=== PATIENT | male | born 1960 | race Caucasian/White ===

== ENCOUNTER → 2016-09-07 | Outpatient (CLI) | payer OTHER ==
[~2016-09-07] MED LIST: ASCO250T4 PO; ASCO500T3 PO; ASPCH81X PO; CHOL1000 PO; FAMO20TA11 PO; FERR1TAB PO; FERR325T PO; FERROUS SULFATE PO; PRLSR20 PO
[2016-09-07 14:30] LABS: BASO % 0.6 %; BASO ABS # 0.03 K/uL (0-0.2); COMPLETE YES; EOS % 1.3 %; HEMATOCRIT 45.3 % (42-52); IG% 0.4 %; LYMPH % 19.5 %; LYMPH ABS # 1.04 K/uL (1.2-3.4); MEAN CELL VOLUME 86.6 fL (80-100); MEAN CORPUSCULAR HEMOGLOBIN 30.2 pg (25-34); MEAN CORPUSCULAR HGB CONC 34.9 g/dl (32-36); MEAN PLATELET VOLUME 10.4 fL (7.4-10.4); MONO % 9.2 %; PLATELET COUNT 185 K/uL (130-400); RED BLOOD COUNT 5.23 M/uL (4.7-6.1); WHITE BLOOD COUNT 5.33 K/uL (4.8-10.8)
[2016-09-07 14:31] LABS: BLOOD UREA NITROGEN 17 mg/dl (7-18); BUN/CREATININE RATIO 17.1 (10-20); CALCIUM 9.1 mg/dl (8.5-10.1); CARBON DIOXIDE 31 mmol/L (21-32); CHLORIDE 102 mmol/L (98-107); CREATININE 0.97 mg/dl (0.60-1.40); GLUCOSE 112 mg/dl (70-99); POTASSIUM 4.4 mmol/L (3.5-5.1); SODIUM 139 mmol/L (136-145)
[2016-09-07 14:41] LABS: CHOLESTEROL 171 mg/dl (0-200); CHOLESTEROL/HDL RATIO 3.4; HDL CHOLESTEROL 51 mg/dl; LDL CHOLESTEROL CALCULATED 104 mg/dl; TRIGLYCERIDES 79 mg/dl (0-150); VERY LOW DENSITY LIPOPROT CALC 16 mg/dl
== END | disposition home or self-care (01) ==
LOC: C.LABBC 10:11
PROVIDERS: ATTEND Nurse Practitioner Family
DX: R53.81 Other malaise (principal); Z13.220 Encounter for screening for lipoid disorders

== ENCOUNTER → 2016-10-04 | Outpatient (CLI) | payer OTHER ==
[2016-10-04 11:22] LABS: ALT/SGPT 39 U/L (12-78); BLOOD UREA NITROGEN 16 mg/dl (7-18); BUN/CREATININE RATIO 14.7 (10-20); CALCIUM 9.2 mg/dl (8.5-10.1); CARBON DIOXIDE 27 mmol/L (21-32); CHLORIDE 104 mmol/L (98-107); GLUCOSE 110 mg/dl (70-99); POTASSIUM 4.4 mmol/L (3.5-5.1); SODIUM 141 mmol/L (136-145)
[2016-10-04 11:26] LABS: ALB/GLOB RATIO 1.4 (0.9-2); ALKALINE PHOSPHATASE 51 U/L (45-117); AST/SGOT 15 U/L (15-37); PROSTATE SPECIFIC ANTIGEN 0.464 ng/ml (0.000-4.000)
[2016-10-04 11:27] LABS: ESTIMATED AVERAGE GLUCOSE 111 mg/dl; HA1C FLAG Normal (Normal)
== END | disposition home or self-care (01) ==
LOC: C.LABBC 09:05
PROVIDERS: ATTEND Nurse Practitioner Family
DX: E55.9 Vitamin D deficiency, unspecified (principal); Z13.220 Encounter for screening for lipoid disorders; Z12.5 Encounter for screening for malignant neoplasm of prostate

== ENCOUNTER 2016-11-07 12:55 | Emergency (ER) | payer OTHER ==
[~2016-11-07] VITALS: Ht 177.8 cm; Wt 108.4 kg
[2016-11-07 13:04] VITALS: TEMP 36.5; Ht 177.8 cm; Wt 108.4 kg
[2016-11-07 13:59] VITALS: O2SAT 96
[2016-11-07 14:34] LABS: BASO % 0.2 %; BASO ABS # 0.01 K/uL (0-0.2); COMPLETE YES; EOS % 1.1 %; HEMATOCRIT 42.9 % (42-52); IG% 0.5 %; LYMPH % 20.9 %; LYMPH ABS # 1.39 K/uL (1.2-3.4); MEAN CELL VOLUME 86.7 fL (80-100); MEAN CORPUSCULAR HEMOGLOBIN 30.9 pg (25-34); MEAN CORPUSCULAR HGB CONC 35.7 g/dl (32-36); MEAN PLATELET VOLUME 9.8 fL (7.4-10.4); MONO % 6.6 %; NEUT % 70.7 %; PLATELET COUNT 168 K/uL (130-400); RED BLOOD COUNT 4.95 M/uL (4.7-6.1); WHITE BLOOD COUNT 6.66 K/uL (4.8-10.8)
[2016-11-07 14:41] LABS: ALT/SGPT 50 U/L (12-78); BLOOD UREA NITROGEN 19 mg/dl (7-18); BUN/CREATININE RATIO 21.6 (10-20); CALCIUM 8.9 mg/dl (8.5-10.1); CARBON DIOXIDE 27 mmol/L (21-32); CHLORIDE 103 mmol/L (98-107); CREATININE 0.86 mg/dl (0.60-1.40); GLUCOSE 93 mg/dl (70-99); POTASSIUM 4.2 mmol/L (3.5-5.1); SODIUM 140 mmol/L (136-145)
[2016-11-07 14:42] LABS: PARTIAL THROMBOPLASTIN RATIO 1.1; PROTHROMBIN TIME (PATIENT) 10.5 SECONDS (9.0-12.0)
[2016-11-07] MEDS ORDERED: FERR325T PO (14:47)
[2016-11-07] MEDS ORDERED: PRLSR20 PO (14:47)
[2016-11-07] MEDS ORDERED: ASPCH81X PO (14:47)
[2016-11-07] MEDS ORDERED: ASCO500T3 PO (14:47)
[2016-11-07] MEDS ORDERED: CHOL1000 PO (14:47)
[2016-11-07] MEDS ORDERED: ASCO250T4 PO (14:50)
[2016-11-07] MEDS ORDERED: FERR1TAB PO (14:50)
[2016-11-07 14:52] LABS: ALKALINE PHOSPHATASE 48 U/L (45-117); AST/SGOT 16 U/L (15-37); CKMB/CK RATIO 1.8 (0-3.0)
--- NOTE | 2016-11-07 14:52 | DIAGNOSTIC IMAGING REPORT ---
CHEST ONE VIEW PORTABLE CLINICAL HISTORY: Evaluate Fever/Sepsis dyspnea COMPARISON STUDY: No previous studies for comparison. FINDINGS: Moderate cardiac megaly. Lungs are clear. Diaphragms smooth. IMPRESSION: No acute process. Moderate cardiomegaly. Electronically signed by: Royce Benton M.D. 11/07/2016 2:51 PM Dictated Date/Time: 11/07/2016 2:51 PM
[2016-11-07] MEDS ORDERED: FAMO20TA11 PO (14:54)
--- NOTE | 2016-11-07 15:53 | EMERGENCY ROOM VISIT NOTE ---
History Report prepared by Lara: Karena Mckeon Under the Supervision of: Dr. Teodoro Rojas D.O. First contact with patient: 14:20 Chief Complaint: CHEST PAIN Stated Complaint: CHEST PAIN/PRESSURE, RESPIRATORY ISSUES Nursing Triage Summary: chest pain started at 0100 this am has been 4-5 times in last month late at night thought he has acid reflux. has cough with green mucus, no sob pt took 4 asa at 0930 and 1130 History of Present Illness The patient is a 56 year old male who presents to the Emergency Room with complaints of constant chest pain beginning 13 hours prior to arrival. He describes the pain as a tightness. The patient states that he woke up at 1am this morning and was not feeling well. He does note he has had cold like symptoms for several days including a cough with sputum. The patient notes that for the past month he has experienced these same symptoms 4-5 times. He notes each time he begins to get anxious that he is having cardiac issues. The patient notes that he came to the ED today due to the symptoms not resolving. He denies symptoms during the day, worsening symptoms with exertion, or a family history of cardiac issues. Patient did take baby Aspirin today and is currently taking acid reflux medications. 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 Review of Systems See HPI for pertinent positives & negatives. A total of 10 systems reviewed and were otherwise negative. Past Medical & Surgical Medical Problems: (1) Acid reflux Family History Patient reports no known family medical history. Social History Smoking Status: Never Smoker Marital Status: Housing Status: lives with family Occupation Status: employed Current/Historical Medications Scheduled Ascorbic Acid (Vitamin C), 1 TAB PO DAILY Aspirin (Aspirin Chewable), 81 MG PO DAILY Cholecalciferol (Vitamin D3), 2 TAB PO DAILY Ferrous Sulfate Dried (Eql Iron Supplement Thera), 1 TAB PO DAILY Omeprazole (Prilosec), 20 MG PO DAILY Scheduled PRN Famotidine (Pepcid), 1 TAB PO UD PRN for GI Upset Allergies Coded Allergies: No Known Allergies (Unverified , 11/07/16) Physical Exam Vital Signs Date Time Temp Pulse Resp B/P Pulse Ox O2 Delivery O2 Flow Rate FiO2 11/07/16 15:00 60 16 119/82 98 11/07/16 14:00 60 16 112/76 96 11/07/16 13:59 96 Room Air 11/07/16 13:04 36.5 59 18 131/85 96 Room Air Physical Exam CONSTITUTIONAL/VITAL SIGNS: Reviewed / noted above. GENERAL: Non-toxic in appearance. INTEGUMENTARY: Warm, dry, and [place]. HEAD: Normocephalic. EYES: without scleral icterus or trauma. ENT/OROPHARYNX: clear and moist. LYMPHADENOPATHY/NECK: Is supple without lymphadenopathy or meningismus. RESPIRATORY: Lungs clear and equal. CARDIOVASCULAR: Regular rate and rhythm. GI/ABDOMEN: Soft and nontender. No organomegaly or pulsatile mass. No rebound or guarding. Normal bowel sounds. EXTREMITIES: Warm and well perfused. BACK: No CVA tenderness. NEUROLOGICAL: Intact without focal deficits. PSYCHIATRIC: normal affect. MUSCULOSKELETAL: Normally developed with good muscle tone. Medical Decision & Procedures ER Provider Diagnostic Interpretation: X ray results and stated below per my interpretation and radiology interpretation. CHEST ONE VIEW PORTABLE CLINICAL HISTORY: Evaluate Fever/Sepsis dyspnea COMPARISON STUDY: No previous studies for comparison. FINDINGS: Moderate cardiac megaly. Lungs are clear. Diaphragms smooth. IMPRESSION: No acute process. Moderate cardiomegaly. Electronically signed by: Royce Benton M.D. 11/07/2016 2:51 PM Dictated Date/Time: 11/07/2016 2:51 PM Laboratory Results 11/07/16 14:18 Red Blood Count 4.95, Mean Corpuscular Volume 86.7, Mean Corpuscular Hemoglobin 30.9, Mean Corpuscular Hemoglobin Concent 35.7, Mean Platelet Volume 9.8, Neutrophils (%) (Auto) 70.7, Lymphocytes (%) (Auto) 20.9, Monocytes (%) (Auto) 6.6, Eosinophils (%) (Auto) 1.1, Basophils (%) (Auto) 0.2, Neutrophils # (Auto) 4.72, Lymphocytes # (Auto) 1.39, Monocytes # (Auto) 0.44, Eosinophils # (Auto) 0.07, Basophils # (Auto) 0.01 11/07/16 14:18 Test 11/07/16 14:18 White Blood Count 6.66 K/uL (4.8-10.8) Red Blood Count 4.95 M/uL (4.7-6.1) Hemoglobin 15.3 g/dL (14.0-18.0) Hematocrit 42.9 % (42-52) Mean Corpuscular Volume 86.7 fL (80-100) Mean Corpuscular Hemoglobin 30.9 pg (25-34) Mean Corpuscular Hemoglobin Concent 35.7 g/dl (32-36) Platelet Count 168 K/uL (130-400) Mean Platelet Volume 9.8 fL (7.4-10.4) Neutrophils (%) (Auto) 70.7 % Lymphocytes (%) (Auto) 20.9 % Monocytes (%) (Auto) 6.6 % Eosinophils (%) (Auto) 1.1 % Basophils (%) (Auto) 0.2 % Neutrophils # (Auto) 4.72 K/uL (1.4-6.5) Lymphocytes # (Auto) 1.39 K/uL (1.2-3.4) Monocytes # (Auto) 0.44 K/uL (0.11-0.59) Eosinophils # (Auto) 0.07 K/uL (0-0.5) Basophils # (Auto) 0.01 K/uL (0-0.2) RDW Standard Deviation 39.9 fL (36.4-46.3) RDW Coefficient of Variation 12.6 % (11.5-14.5) Immature Granulocyte % (Auto) 0.5 % Immature Granulocyte # (Auto) 0.03 K/uL (0.00-0.02) Prothrombin Time 10.5 SECONDS (9.0-12.0) Prothromb Time International Ratio 1.0 (0.9-1.1) Activated Partial Thromboplast Time 28.1 SECONDS (21.0-31.0) Partial Thromboplastin Ratio 1.1 Anion Gap 10.0 mmol/L (3-11) Est Creatinine Clear Calc Drug Dose 119.6 ml/min Estimated GFR () 113.1 Estimated GFR (Non- 97.6 BUN/Creatinine Ratio 21.6 (10-20) Calcium Level 8.9 mg/dl (8.5-10.1) Total Bilirubin 0.6 mg/dl (0.2-1) Direct Bilirubin 0.2 mg/dl (0-0.2) Aspartate Amino Transf (AST/SGOT) 16 U/L (15-37) Alanine Aminotransferase (ALT/SGPT) 50 U/L (12-78) Alkaline Phosphatase 48 U/L (45-117) Total Creatine Kinase 33 U/L (39-308) Creatine Kinase MB 0.6 ng/ml (0.5-3.6) Creatine Kinase MB Ratio 1.8 (0-3.0) Troponin I < 0.015 ng/ml (0-0.045) Total Protein 7.0 gm/dl (6.4-8.2) Albumin 4.0 gm/dl (3.4-5.0) Lipase 105 U/L (73-393) Thyroid Stimulating Hormone (TSH) 2.430 uIu/ml (0.300-4.500) Laboratory results as stated above per my review. ECG Indication: chest pain Rate (beats per minute): 56 Rhythm: sinus bradycardia Findings: T-wave inversion (Anterior), no acute ischemic change, no ectopy Comparison ECG Date: Compared to November 26, 2011 the T wave abnormalities in Lead 1 are similar, Lead 2 and 3 appear new ED Course 1421: Previous medical records were reviewed. The patient was evaluated in room B10. A complete history and physical examination was performed. 1541: I discussed the test results with the patient. 1550: The patient would like to go home. 1554: On reevaluation, the patient is hemodynamically stable. I discussed the results and findings with the patient. He verbalized agreement of the treatment plan. He was discharged home. Medical Decision the differential was considered includes acute myocardial infarction, acute coronary syndrome, myocarditis, pericarditis, pericardial effusions /tamponad, esophageal perforation, thoracic aortic dissection, pulmonary embolism, pneumonia, pneumothorax, pancreatitis, shingles, acute cholecystitis, perforated abdominal viscus. This is a 56-year-old male who presents to the ED with a chief complaint of chest discomfort. The patient states that he has been having intermittent chest discomfort at night. He states that he has had a 3-4 times this past month. He states that last night around 1 AM he developed a tightness in his chest. He denied any associated symptoms such as shortness of breath, palpitations, lightheadedness or dizziness. 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 He does not have symptoms during the day. He denies any fevers or chills. No trauma. No swelling in the legs or DVT risk factors. He denies cardiac risk factors such as family history or smoking. He takes medication for reflux. The patient has normal vital signs. His exam was normal. Blood work including a CBC and complete metabolic panel as well as troponin and TSH were negative. A chest x-ray did not show acute disease. EKG shows a sinus bradycardia rate of 56 without acute injury or ectopy. He does have some T-wave inversions anteriorly. The one was similar to 2012 but the other 2 were new. The patient was told results the test. I did offer observation overnight and stress testing tomorrow because the EKG abnormality. The patient stated he would like to go home and follow-up with his PCP and get an outpatient stress test. He is currently asymptomatic. He will return should he have any worsening or new concerns. He is felt to be stable for discharge and outpatient follow-up. Impression Primary Impression: Substernal precordial chest pain Scribe Attestation The scribe's documentation has been prepared under my direction and personally reviewed by me in its entirety. I confirm that the note above accurately reflects all work, treatment, procedures, and medical decision making performed by me. Departure Information Dispostion Home / Self-Care Referrals Aidan Crews III, CRNP (PCP) Forms HOME CARE DOCUMENTATION FORM, IMPORTANT VISIT INFORMATION Patient Instructions My [facility] Additional Instructions Follow-up with your doctor for outpatient stress testing. Your EKG was not completely normal today. Return to the emergency department should he develop any new or worsening symptoms.
[2016-11-07 16:00] VITALS: BP 111/69; PULSE 64; O2SAT 99
[2017-05-13] MEDS ORDERED: FERROUS SULFATE PO (11:05)
== END 2016-11-07 16:18 | disposition home or self-care (01) ==
LOC: C.EDB 12:57
DX: R07.2 Precordial pain (principal); K21.9 Gastro-esophageal reflux disease without esophagitis; Z79.899 Other long term (current) drug therapy; Z79.82 Long term (current) use of aspirin

== ENCOUNTER → 2016-12-01 | Outpatient (CLI) | payer OTHER ==
[~2016-12-01] MED LIST changes: -ASCO500T3 PO; -FERR325T PO
== END | disposition home or self-care (01) ==
LOC: C.LABBC 10:26
PROVIDERS: ATTEND Nurse Practitioner Family
DX: E55.9 Vitamin D deficiency, unspecified (principal)

== ENCOUNTER → 2017-04-21 | Outpatient (CLI) | payer OTHER ==
[2017-04-21 11:29] LABS: BLOOD UREA NITROGEN 17 mg/dl (7-18); BUN/CREATININE RATIO 17.2 (10-20); CALCIUM 9.1 mg/dl (8.5-10.1); CARBON DIOXIDE 29 mmol/L (21-32); CHLORIDE 107 mmol/L (98-107); GLUCOSE 109 mg/dl (70-99); POTASSIUM 4.4 mmol/L (3.5-5.1); SODIUM 141 mmol/L (136-145)
[2017-04-21 12:40] LABS: ESTIMATED AVERAGE GLUCOSE 111 mg/dl; HA1C FLAG Normal (Normal)
== END | disposition home or self-care (01) ==
LOC: C.LABBC 07:49
PROVIDERS: ATTEND Nurse Practitioner Family
DX: R73.9 Hyperglycemia, unspecified (principal)

== ENCOUNTER → 2017-05-31 | Day surgery (SDC) | payer OTHER ==
[2017-05-13 11:06] VITALS: BMI 33.0
[~2017-05-31] VITALS: Ht 177.8 cm; Wt 104.5 kg
[~2017-05-31] MED LIST changes: -ASPCH81X PO; +FENTANYL CITRATE INJ 50 MCG/1 ML 2 ML VIAL ONE; -FERR1TAB PO; +LIDOCAINE HCL 2% 2 ML VIAL (20MG/ML) ONE; +PROPOFOL IV EMULSION 10 MG/ML 20 ML VIAL IV ONE; +SODIUM CHLORIDE 0.9% 500ML 500 ML IV ONE
[2017-05-31 07:56] VITALS: Ht 177.8 cm; Wt 104.5 kg
--- NOTE | 2017-05-31 08:35 | Endo History and Physical ---
History & Physical Date of Service: May 31, 2017. Chief Complaint: reflux Referring Physician: DR. JANET PRESCOTT History of Present Illness 57 yo CM who presents for EGD secondary to GERD. Past Surgical History Hx Cardiac Surgery: No Hx Internal Defibrillator: No Hx Pacemaker: No Hx Abdominal Surgery: No Hx of Implantable Prosthesis: No Hx Post-Op Nausea and Vomiting: No Hx Cancer Surgery: No Hx Thoracic Surgery: No Hx Orthopedic: Yes (R KNEE MENISCUS SURG) Hx Urinary Tract Surgery: No Family History None Social History Smoking Status: Never Smoker Hx Substance Use: No Hx Alcohol Use: Yes (DAILY BEER 3 A DAY) Allergies Coded Allergies: No Known Allergies (Unverified , 05/31/17) Current Medications Reported Home Medications Medications Dose Route/Sig Max Daily Dose Days Date Category Pepcid (Famotidine) 20 Mg Tab 20 Mg PO PRN 05/31/17 Reported [Ferrous Sulfate] 1 Tab PO QAM 05/13/17 Reported Vitamin C (Ascorbic Acid) 250 Mg Tab 1 Tab PO QAM 11/07/16 Reported Vitamin D3 (Cholecalciferol) 1,000 Unit Tab 2 Tab PO DAILY 30 11/07/16 Reported Prilosec (Omeprazole) 20 Mg Capcr 20 Mg PO QAM 11/07/16 Reported Vital Signs Weight (Kilograms): 104.55 Height (Feet): 5 Height (Inches): 10 Date Time Temp Pulse Resp B/P (MAP) Pulse Ox O2 Delivery O2 Flow Rate FiO2 05/31/17 08:04 36.6 59 18 118/80 (93) 93 Room Air Physical Exam General Appearance: WD/WN, no apparent distress Respiratory/Chest: Auscultation: breath sounds normal Cardiovascular: Heart Auscultation: RRR Abdomen: Bowel Sounds: normal Inspection & Palpation: soft, non-distended, no tenderness, guarding & rebound Assessment and Plan Assessment: 57 yo CM who presents for EGD secondary to GERD. Plan: Proceed with EGD.
--- NOTE | 2017-05-31 08:51 | GI REPORT ---
Procedure Date: 05/31/2017 8:41 AM Procedure: Upper GI endoscopy Indications: Gastro-esophageal reflux disease Medicines: Monitored Anesthesia Care Complications: No immediate complications. Estimated Blood Loss: Estimated blood loss: none. Procedure: Pre-Anesthesia Assessment: - Prior to the procedure, a History and Physical was performed, and patient medications and allergies were reviewed. The patient's tolerance of previous anesthesia was also reviewed. The risks and benefits of the procedure and the sedation options and risks were discussed with the patient. All questions were answered, and informed consent was obtained. Prior Anticoagulants: The patient has taken no previous anticoagulant or antiplatelet agents. ASA Grade Assessment: II - A patient with mild systemic disease. After reviewing the risks and benefits, the patient was deemed in satisfactory condition to undergo the procedure. After obtaining informed consent, the endoscope was passed under direct vision. Throughout the procedure, the patient's blood pressure, pulse, and oxygen saturations were monitored continuously. The scope was introduced through the mouth, and advanced to the second part of duodenum. The upper GI endoscopy was accomplished without difficulty. The patient tolerated the procedure well. Findings: The esophagus was normal. Localized mild inflammation characterized by erythema was found in the gastric antrum. Biopsies were taken with a cold forceps for histology. The examined duodenum was normal. Impression: - Normal esophagus. - Gastritis. Biopsied. - Normal examined duodenum. Recommendation: - Resume previous diet. - Continue present medications. - Await pathology results. - Return to primary care physician as previously scheduled. Martell Oconnor DO 05/31/2017 8:51:51 AM This report has been signed electronically. Note Initiated On: 05/31/2017 8:41 AM I attest to the content of the Intraoperative Record and orders documented therein, exceptions below
--- NOTE | 2017-05-31 09:01 | Discharge Instructions ---
Endoscopy Patient Instructions Date / Procedure(s) Performed May 31, 2017. EGD Allergy Information Coded Allergies: No Known Allergies (Unverified , 05/31/17) Discharge Date / Findings May 31, 2017. Gastritis s/p biopsies Medication Instructions OK to resume all medications today as prescribed Reported Home Medications Medications Dose Route/Sig Max Daily Dose Days Date Category Pepcid (Famotidine) 20 Mg Tab 20 Mg PO PRN 05/31/17 Reported [Ferrous Sulfate] 1 Tab PO QAM 05/13/17 Reported Vitamin C (Ascorbic Acid) 250 Mg Tab 1 Tab PO QAM 11/07/16 Reported Vitamin D3 (Cholecalciferol) 1,000 Unit Tab 2 Tab PO DAILY 30 11/07/16 Reported Prilosec (Omeprazole) 20 Mg Capcr 20 Mg PO QAM 11/07/16 Reported Provider Instructions Activity Restrictions - No exercising or heavy lifting for 24 hours. - Do not drink alcohol the day of the procedure. - Do not drive a car or operate machinery until the day after the procedure. - Do not make any important decisions or sign important papers in 24 hours after the procedure. Following Day: - Return to full activity which may include returning to work/school. Diet Start your diet with liquids and light foods (jello, soup, juice, toast). Then eat your usual diet if not nauseated. Treatment For Common After Affects For mild abdominal pain, bloating, or excessive gas: - Rest - Eat lightly - Lie on right side Follow-Up Information Follow-up with DR. JANET PRESCOTT as scheduled Anesthesia Information What You Should Know You have had a procedure that required some medicine to reduce anxiety and discomfort. This treatment is called moderate sedation. After receiving the treatment, you may be sleepy, but you will be able to breathe on your own. The effects of the treatment may last for several hours. Follow these instructions along with Activity/Diet recommendations noted above: * Do NOT do anything where dizziness or clumsiness would be dangerous. * Rest quietly at home today, then you can be up and about tomorrow. * Have a responsible person stay with you the rest of today. * You may have had an I.V. today. If so, you may take the dressing off later today. Recommendations Call your doctor if: * Trouble breathing * Continuous vomiting for more than 24 hours * Temperature above 101 degrees * Severe abdominal pain or bloating * Pain not relieved by pain medicine ordered * There is increased drainage or redness from any incision * A large amount of rectal bleeding greater than 2-3 tablespoons. (If you had a polyp/s removed or have hemorrhoids, a small amount of blood - from the rectum is to be expected.) * You have any unanswered questions or concerns. IN THE EVENT OF A SERIOUS EMERGENCY, GO TO THE NEAREST EMERGENCY ROOM Your discharge instructions were prepared by provider Martell Oconnor. Patient Instructions Signature Page Manav Brown Patient (or Guardian) Signature/Date: I have read and understand the instructions given to me by my caregivers. Caregiver/RN/Doctor Signature/Date: The above-named patient and/or guardian has received patient instructions on this date. + Original Patient Signature Page (only) stays with chart. Please make copy for patient.
[2017-05-31 09:22] VITALS: BP 107/69; PULSE 53; O2SAT 96
--- NOTE | 2017-05-31 10:21 | Anesthesiology Progress Note ---
Anesthesia Post Op Note Date & Time May 31, 2017 at 10:21 Vital Signs Pain Intensity: 0 Vital Signs Past 12 Hours Date Time Temp Pulse Resp B/P (MAP) Pulse Ox O2 Delivery O2 Flow Rate FiO2 05/31/17 09:22 53 18 107/69 (82) 96 Room Air 05/31/17 09:07 54 18 119/75 (90) 96 Room Air 05/31/17 08:52 73 18 107/69 (82) 93 Room Air 05/31/17 08:04 36.6 59 18 118/80 (93) 93 Room Air Notes Mental Status: alert / awake / arousable, participated in evaluation Pt Amnestic to Procedure: Yes Nausea / Vomiting: adequately controlled Pain: adequately controlled Airway Patency, RR, SpO2: stable & adequate BP & HR: stable & adequate Hydration State: stable & adequate Anesthetic Complications: no major complications apparent
== END | disposition home or self-care (01) ==
LOC: C.GI 07:32
PROVIDERS: ATTEND Internal Medicine
DX: K29.50 Unspecified chronic gastritis without bleeding (principal); K21.9 Gastro-esophageal reflux disease without esophagitis; Z79.899 Other long term (current) drug therapy

== ENCOUNTER → 2017-06-08 | Outpatient (CLI) | payer OTHER ==
[~2017-06-08] MED LIST changes: -FENTANYL CITRATE INJ 50 MCG/1 ML 2 ML VIAL ONE; -LIDOCAINE HCL 2% 2 ML VIAL (20MG/ML) ONE; -PROPOFOL IV EMULSION 10 MG/ML 20 ML VIAL IV ONE; -SODIUM CHLORIDE 0.9% 500ML 500 ML IV ONE
--- NOTE | 2017-06-08 10:05 | DIAGNOSTIC IMAGING REPORT ---
R WRIST MIN 3 VIEWS ROUTINE CLINICAL HISTORY: Chronic right wrist pain. COMPARISON: None FINDINGS: There is complete loss of the radiocarpal joint space with osteophytosis. There is widening of the scapholunate interval. No fracture or suspicious lesion is present. No erosions are identified IMPRESSION: Marked joint space narrowing of the radiocarpal articulation suggestive of osteoarthritis with widening of the scapholunate interval. The findings raise the possibility of developing scapholunate advanced collapse. Electronically signed by: Kem Andersen M.D. 06/08/2017 10:04 AM Dictated Date/Time: 06/08/2017 10:01 AM
== END | disposition home or self-care (01) ==
LOC: C.RADBC 09:39
PROVIDERS: ATTEND Nurse Practitioner Family
DX: M25.531 Pain in right wrist (principal); E55.9 Vitamin D deficiency, unspecified

== ENCOUNTER 2025-04-05 08:16 | Observation (INO) ==
--- NOTE | 2025-02-28 11:16 | PAT Medication Instructions ---
Medication Instructions Date of Service February 28, 2025 Home Medications Medication Instructions Recorded meloxicam 15 mg tablet 15 mg PO QAM #90 tabs 05/07/24 omeprazole 40 mg capsule,delayed 40 mg PO DAILY PRN acid reflux #90 12/06/24 release caps ascorbic acid (vitamin C) 500 mg chewable tablet 500 mg PO DAILY cholecalciferol (vitamin D3) 125 mcg (5,000 unit) capsule 5,000 units PO DAILY multivitamin with iron (Daily Vitamin with Iron tablet) 1 tab PO DAILY meloxicam 15 mg tablet 15 mg PO QAM omeprazole 40 mg capsule,delayed release 40 mg PO DAILY PRN acid reflux ASK your surgeon for instructions meloxicam 15 mg tablet 15 mg PO QAM DO NOT take the morning of surgery ascorbic acid (vitamin C) 500 mg chewable tablet 500 mg PO DAILY cholecalciferol (vitamin D3) 125 mcg (5,000 unit) capsule 5,000 units PO DAILY multivitamin with iron (Daily Vitamin with Iron tablet) 1 tab PO DAILY Take morning of surgery With a small sip of water, OTHERWISE NOTHING TO EAT OR DRINK AFTER MIDNIGHT: omeprazole 40 mg capsule,delayed release 40 mg PO DAILY PRN acid reflux (if needed) Other Notes If you have any questions please call us at [phone] or [phone] or [phone] or [phone]
--- NOTE | 2025-03-07 08:23 | Anesthesiology Consultation ---
Date of Service March 07, 2025 Assessment & Plan (1) Encounter for pre-operative examination: - Check BSG DOS - Infectious disease screening: Per assessment on 03/07/25- No known recent infectious disease contacts or current infectious disease symptoms. - Outpatient joint assessment: Pt currently scheduled for inpatient pathway. If surgeon requests review for outpatient joint pathway, patient is not recommended candidate for outpatient joint program from anesthesia standpoint based on available information. Chart Review Chart Review: Acceptable Risk for Surgery and Patient seen in Pre Admission Testing Teaching & Discussion Pre-Anesthesia Teaching/Discussion Notes: Instructed NPO after midnight before surgery,except medications with 15 cc of water. Medication instructions provided according to the PAT guidelines. History Surgery Operation Date: 04/05/25 08:00 Proposed Procedures p Right Total Knee Arthroplasty - Yuriy Gonzalez DO Height/Weight Height: 5 ft 10 in Weight: 119.7 kg Allergies Allergy/AdvReac Type Severity Reaction Status Date / Time adhesive tape Allergy Intermediate Rash Verified 02/27/25 07:32 terbinafine AdvReac H/A, Verified 02/27/25 07:32 myalgias Medications Home Medications Medication Instructions Recorded Confirmed Last Taken ascorbic acid (vitamin C) 500 mg 500 mg PO DAILY 04/23/19 02/27/25 04/02/24 chewable tablet cholecalciferol (vitamin D3) 125 5,000 units PO DAILY 08/23/19 02/27/25 04/02/24 mcg (5,000 unit) capsule multivitamin with iron (Daily 1 tab PO DAILY 11/06/19 02/27/25 04/02/24 Vitamin with Iron tablet) meloxicam 15 mg tablet 15 mg PO QAM #90 tabs 05/07/24 02/27/25 Unknown omeprazole 40 mg capsule,delayed 40 mg PO DAILY PRN acid reflux #90 12/06/24 02/27/25 Unknown release caps Past Medical History Medical History Arthritis GERD (gastroesophageal reflux disease) PPI 4-5 times/week Pre-diabetes Diet controlled Sensorineural hearing loss (SNHL) of both ears Sleep apnea No device Exercise / Class Metabolic Activity II 4-5 Yardwork/Stairs/Walk up hill (one FS: No CP, no SOB) Past Family History Family History Other No family history of adverse response to anesthesia No family history of bleeding disorder No pertinent family history Denies family history of Ovarian cancer Prostate cancer Myocardial infarction Breast cancer Colorectal cancer Past Surgical History Surgical History History of esophagogastroduodenoscopy (EGD) Hx of colonoscopy Hx of total ankle replacement (05/2024) Left, [place] S/P carpal tunnel release Right hand S/P medial meniscal repair S/P wisdom tooth extraction Past Anesthesia History No Hx of Anesthesia Complications and No Family Hx of Anesthesia Complications History of PONV No Hx of PONV and Hx of Motion Sickness Social History Smoking Status: Never smoker Do You Dip or Chew Tobacco: No (quit 15 years ago; advised) Hx Alcohol Use: Yes Alcohol type: beer alcohol intake frequency: 0-2 drinks per day (2 drinks/day) Hx Substance Use: No substance use type: does not use Review of Systems Patient denies chest pain, shortness of breath, dyspnea on exertion, fever, chills, cough, wheezing, palpitations. Physical Exam Vital Signs BP 129/83 P 79 TEMP 98.0 SP02 95%RA RESP 16 Physical Full cervical extension range of motion. Full TMJ range of motion. TMD 3 finger breaths Mallampati Score III Dentition: intact Lungs: clear throughout to auscultation Cardiac: regular rate and rhythm, no murmurs noted Spine: normal Carotid arteries: negative bruit Extremities: no LE edema Lab Results Anesthesia Preop Results Results Anesthesia Widget: WBC 6.47 K/ul (4.8-10.8) 03/07/25 Hgb 15.8 g/dl (14.0-18.0) 03/07/25 Hct 45.9 % (42.0-52.0) 03/07/25 Plt 172 K/uL (130-400) 03/07/25 Na 139 mmol/L (136-145) 03/04/25 K 4.4 mmol/L (3.5-5.1) 03/04/25 Cl 103 mmol/L (98-107) 03/04/25 CO2 31 mmol/L (21-32) 03/04/25 BUN 25 mg/dl (6-23) H 03/04/25 Creat 0.87 mg/dl (0.6-1.4) 03/04/25 Glucose Level 140 mg/dl (70-99(Fasting)) H 03/04/25 PT 10.3 Seconds (9.0-12.0) 03/07/25 PTT 27 Seconds (21-31) 03/07/25 INR 0.9 (0.9-1.1) 03/07/25 HA1c 6.1 % (4.5-5.6) H 03/04/25 Blood Type A Negative 03/07/25 Antibody Screen NEGATIVE 03/07/25 Testing Electrocardiogram Date: 03/07/25 NSR with sinus arrhythmia at 73bpm. Cannot r/o inferior infarct, age undetermined. No significant change compared 11/07/2016 per kiln pusher comparison. Chest X-Ray Date: 03/07/25 FINDINGS: PA and lateral views of the chest demonstrate no acute cardiopulmonary process. There is no airspace opacity or pleural effusion. The heart and pulmonary vascularity are unremarkable. IMPRESSION: No acute process
--- NOTE | 2025-04-04 07:25 | History & Physical Report ---
Date of Service April 04, 2025 Assessment & Plan (1) Right knee DJD: We will proceed with a right total knee arthroplasty. Postoperatively, he will be started on aspirin for DVT prophylaxis and kept overnight in the hospital for postop medical management. He plans to use energy physical therapy at discharge . History of Present Illness Chief Complaint: Osteoarthritis of the right knee. Primary Care Provider: Aidan Crews, III, SAUL Manav is a pleasant 64-year-old male who has been dealing with chronic increasing right knee pain. X-rays and MRI have been suggestive of medial compartmental arthritis of his right knee. He has been receiving injections in our office for a while now. He has tried cortisone injections and viscosupplementation. Unfortunately, he is still struggling with his right knee. After failing conservative treatment, he has elected proceed with a right total knee arthroplasty. Allergies Allergy/AdvReac Type Severity Reaction Status Date / Time adhesive tape Allergy Intermediate Rash Verified 02/27/25 07:32 terbinafine AdvReac H/A, Verified 02/27/25 07:32 myalgias Home Medications Medication Instructions Recorded Confirmed Type ascorbic acid (vitamin C) 500 mg 500 mg PO DAILY 04/23/19 02/27/25 History chewable tablet cholecalciferol (vitamin D3) 125 5,000 units PO DAILY 08/23/19 02/27/25 History mcg (5,000 unit) capsule multivitamin with iron (Daily 1 tab PO DAILY 11/06/19 02/27/25 History Vitamin with Iron tablet) meloxicam 15 mg tablet 15 mg PO QAM #90 tabs 05/07/24 02/27/25 Rx omeprazole 40 mg capsule,delayed 40 mg PO DAILY PRN acid reflux #90 12/06/24 02/27/25 Rx release caps scopolamine base 1 mg over 3 days 1 patch transdermal Q3D PRN nausea 03/20/25 Rx transdermal patch (Transderm-Scop) and vomiting #4 ea Past Med/Surg History Problem List Obesity (BMI 30-39.9) Acute medial meniscus tear of right knee Right knee DJD Encounter for pre-operative examination Pre-diabetes Sensorineural hearing loss (SNHL) of both ears Unilateral subjective nonpulsatile tinnitus without hearing loss, otoscopic finding, neurologic deficit, or head trauma Plantar fasciitis of left foot Arthritis of ankle, left Heel spur Postural imbalance Lumbar strain Degenerative joint disease of wrist Carpal tunnel syndrome, right Vitamin D deficiency (Acute) Sleep apnea (Acute) Radicular pain in left arm (Acute) Hyperglycemia (Acute) Gastro-esophageal reflux (Acute) Acid reflux (Chronic) Medical History Arthritis Sensorineural hearing loss (SNHL) of both ears GERD (gastroesophageal reflux disease) PPI 4-5 times/week Sleep apnea No device Pre-diabetes Diet controlled Surgical History Hx of total ankle replacement (05/2024) [facility] History of esophagogastroduodenoscopy (EGD) Hx of colonoscopy S/P carpal tunnel release Right hand S/P medial meniscal repair S/P wisdom tooth extraction Family History Other No family history of adverse response to anesthesia No family history of bleeding disorder No pertinent family history Denies family history of Ovarian cancer Prostate cancer Myocardial infarction Breast cancer Colorectal cancer Social History Smoking Status: Never smoker Second Hand Exposure: Yes (hx as child); Do You Dip or Chew Tobacco: No (quit 15 years ago; advised); Tobacco Cessation Education Requested by Patient: No Hx Alcohol Use: Yes Alcohol type: beer Alcohol Intake Frequency: 2-3 x/Week Alcohol Intake Frequency Comment: 1-2 beers/day Hx Substance Use: No Preferred Language: Romanian Communication Ability: Effective Visual Impairment: No Limitations Hearing Ability: Normal Desizing Pad Operator Required: No Beliefs That Will Affect Care: None marital status: Current Living Situation: Spouse and Family current occupational status: employed current occupation: SELF EMPLOYED HOUSE REPAIRER How many Children do You have: 2 Other Information That Helps Us Care for You: No Feels Safe at Home: Yes Safety Concerns: Feels Safe At This Time Childhood Exposure to Second-Hand Smoke: Yes Diet: regular caffeine: Yes during the past year weight has: remained stable Dental Care, Regularly: Yes Physical Activity Frequency: Daily Seatbelt Use: always Sunscreen Use: No Do you think of yourself as: straight/heterosexual Assistive Devices: Glasses Review of Systems All systems reviewed & are unremarkable except as noted in HPI & below. Physical Exam On physical exam of the right knee, he has slight varus deformity. He has tenderness to palpation of the distal medial femoral condyle and over the medial joint line.. Constitutional WD/WN, vitals as above Eyes PERRL, conjunctivae normal, anicteric sclerae ENMT external ear and nose normal, oropharynx normal Neck trachea midline, no thyromegaly Respiratory normal respiratory effort Cardiovascular RRR, no murmur, no edema Gastrointestinal (Abdomen) normal bowel sounds, soft, nontender, no hepatosplenomegaly Psychiatric A+Ox3, euthymic affect Results & Data Results & Data Laboratory Results . Diagnostic Findings X-rays of the right knee show advanced osteoarthritis with joint space narrowing, osteophyte formation, and agwu-[id number] articulation. PG Care Time/CCT Total # of Minutes Spent Total Time Spent with Patient: Total time spent is greater than 50% in coordination of care (as documented) at patient's floor/unit and/or counseling patient: Coding Level of Care Code None Diagnoses Right knee DJD M17.11
[~2025-04-05 08:16] MED LIST changes: -ASCO250T4 PO; +BUPIVACAINE 0.5 % 5 MG/1 ML PF 10ML VIAL ONE; -CHOL1000 PO; -FAMO20TA11 PO; -FERROUS SULFATE PO; -PRLSR20 PO; +ROPIVACAINE 0.5% 5 MG/ML 30 ML VIAL ONE
[2025-04-05] MEDS ORDERED: LIDOCAINE 2% 2 ML VIAL/AMP(20MG/ML) INFIL ONE (08:27)
[2025-04-05] MEDS ORDERED: ONDANSETRON INJ 2 MG/ML 2 ML VIAL ONE (08:27)
[2025-04-05] MEDS ORDERED: PROPOFOL IV EMULSION 10 MG/ML 20 ML VIAL IV ONE ×2 (08:27→08:29)
[2025-04-05] MEDS ORDERED: MIDAZOLAM HCL 1 MG/ML 2ML VIAL ONE (08:28)
[2025-04-05] MEDS: GABAPENTIN 600 MG DOSE PO SCH (08:33)
[2025-04-05] MEDS: ACETAMINOPHEN 500 MG TAB PO SCH ×2 (08:33→14:41)
[2025-04-05] MEDS: dexAMETHasone**PF** 10 MG/ML VIAL IV SCH (08:33)
[2025-04-05] MEDS: FAMOTIDINE 20 MG TAB PO SCH (08:33)
[2025-04-05] MEDS: LR 60ML/HR IV SCH (08:34)
[2025-04-05] MEDS: LR 500ML BOLUS, THEN 15ML/HR IV SCH (09:14)
--- NOTE | 2025-04-05 09:34 | History & Physical Bridge Note ---
Date of Service April 05, 2025 History & Physical Bridge Note I have examined the patient, reviewed the History & Physical and in the interval since the performance of the History & Physical I have noted the following changes of clinical significance: no changes noted
[2025-04-05] MEDS ORDERED: ATROPINE SULFATE 0.1 MG/ML 10ML SYR IV PRN (10:01)
[2025-04-05] MEDS ORDERED: ONDANSETRON INJ 2 MG/ML 2 ML VIAL IV PRN ×2 (10:01→14:10)
[2025-04-05] MEDS: TRANEXAMIC ACID 1,000 MG **IV Pre-op IV SCH (10:18)
[2025-04-05] MEDS: ROPIV 0.5% 246mg, Ketorolac 30mg, EPINEPHrine 0.5mg in NSS INFIL SCH (11:11)
[2025-04-05] MEDS: ORTHO JOINT ANESTHETIC ONE (11:12)
--- NOTE | 2025-04-05 11:52 | Operative Report ---
PG Post Operative Report Pre & Post Diagnosis Operation Date: 04/05/25 10:00 Pre-Op Diagnosis: Right Knee Degenerative Joint Disease Post-Op Diagnosis: Right Knee Degenerative Joint Disease I identified the patient and participated in the time-out.: Yes Procedure Operation Date: 04/05/25 10:00 Actual Procedures p Robotic Assisted Right Total Knee Arthroplasty(Right) - Yuriy Gonzalez DO Surgeon Yuriy Gonzalez DO Fermenter Shelton Cordova PA-C Estimated Blood Loss 30 Findings Consistent with Post-Op Diagnosis Specimens Right femoral and tibial bone Description of Procedure Implants used: I used a [employer] Persona total knee arthroplasty system with a size 11 standard femur, F tibia, 34 oval patella, and a size 10 CPS polyethylene bearing. All components were cemented in place with Biomet cement. Manav arrived [facility] for the above procedure. He was seen in the preoperative holding area and the operative extremity was identified and signed. he was given a preoperative antibiotic, TXA, a spinal anesthetic and an adductor nerve block. He was taken back to the operating room and laid on the table in supine position. He was given basic sedation. The operative knee was then prepped and draped in sterile fashion. A timeout was done, and the patient and the operative extremity was properly identified. A midline incision was made directly over the patella. Dissection was taken down to the extensor mechanism. A medial parapatellar arthrotomy was used. The medial retinaculum was released and the fat pad was mostly excised. The knee was flexed and the ACL, PCL, and meniscus were removed. The alignment of the knee replacement was assisted with a [employer] robotic knee. The femoral array was pinned in the distal femur and the tibial array was pinned using a percutaneous technique in the upper shaft of the tibia. The robot was appropriately calibrated and the structure of the knee was mapped out. The components were then manipulated on the screen to account for any malalignment and to assist in gap balancing. Once I was happy with the placement of the components on the screen, a distal femoral cutting guide was brought in place. The distal femur was then resected. The femur measured to be a size 11. A 4-in-1 cutting block was then put into place by the robot and 2 peg holes were drilled. The 4-in-1 cutting block was then impacted into place and anterior, posterior, and chamfer cuts were made. The cutting block was then brought down to the tibia and pinned into place. The proximal tibia was then resected. The posterior aspect of the knee was then opened up and any additional meniscus fragments and osteophytes were removed. The tibia measured to be a size F. The tibial plate was then placed in the appropriate rotation and the tibia was drilled and punched. Trial components were then placed. The patella was then everted and 9 mm was resected off the posterior aspect of the patella. The patella measured to be a size 34 oval. 3 peg holes were then drilled. A trial patella was placed. A size 10 CPS polyethylene insert was then trialed. The knee was brought through a full range of motion and felt to be stable. Trial components were then removed. The surrounding soft tissues were injected with 100 cc of an orthopedic pain control cocktail. All components were then cemented into place with Biomet cement. The final polyethylene insert was then snapped into place. Once cement was dry the tourniquet was deflated. Hemostasis was obtained. A dilute betadyne lavage was then done for 3 minutes. The joint was then irrigated with normal saline solution. The medial parapatellar arthrotomy was then closed with #1 Vicryl suture. The skin was closed with 2-0 Vicryl, 3-0V lock suture, and Crystal zip tie. A soft compressive dressing was placed. He was then transferred to a hospital bed and taken to the postanesthesia care unit in stable condition. He tolerated the procedure well. Shelton Cordova PA-C, was present for the entire procedure. He was critical for patient positioning, prepping, draping, retraction exposure, wound closure and application of sterile dressing. I attest to the content of the Intraoperative Record and any orders documented therein. Any exceptions are noted below.
--- NOTE | 2025-04-05 12:57 | XRay Report ---
XR knee RT 1 or 2V routine CLINICAL HISTORY: Surgical Post Op COMPARISON: 07/07/2024 FINDINGS: Right knee prosthesis shows no hardware complication. There is expected soft tissue gas. IMPRESSION: Unremarkable postoperative exam. ACT 112: Negative or not required by law. Electronically signed by: Gilbert Boswell M.D. 04/05/2025 12:56 PM
--- NOTE | 2025-04-05 13:16 | Anesthesiology Progress Note ---
Date of Service April 05, 2025 Anesthesia Post Procedure Vital Signs Vital Signs: Temp Pulse Pulse Resp BP Pulse Ox O2 Del Method 04/05/25 13:10 97.5 F L 85 13 119/71 95 Nasal Cannula 04/05/25 13:00 63 17 128/86 92 Room Air 04/05/25 12:50 78 13 129/73 95 Oxymask 04/05/25 12:40 66 16 122/74 95 Oxymask 04/05/25 12:30 79 14 114/76 97 Oxymask 04/05/25 12:20 97.3 F L 87 24 122/74 95 Oxymask 04/05/25 08:24 98.1 F 66 20 129/80 95 Room Air O2 Flow Rate 04/05/25 13:10 2 04/05/25 13:00 0 04/05/25 12:50 4 04/05/25 12:40 4 04/05/25 12:30 4 04/05/25 12:20 4 04/05/25 08:24 Pain Intensity Right Knee: Pain Intensity: 1 Transfer of Care Handoff Completed per policy Notes Mental Status: alert / awake / arousable and participated in evaluation Patient Amnestic to Procedure: Yes Nausea / Vomiting: adequately controlled Pain: adequately controlled Airway Patency, RR, SpO2: stable & adequate BP & HR: stable & adequate Hydration State: stable & adequate Neuraxial Anesthesia: was administered and sensory block is resolving Anesthetic Complications: no major complications apparent and Pt Satisfied with anesthetic care
[2025-04-05] MEDS ORDERED: HYDROmorphone INJ 0.5 MG/0.5 ML SYR IV PRN (14:10)
[2025-04-05] MEDS ORDERED: METOCLOPRAMIDE HCL INJ 5 MG/ML 2 ML VIAL IV PRN (14:10)
[2025-04-05] MEDS ORDERED: MAGNESIUM HYDROXIDE SUSP 30 ML UDC PO PRN (14:10)
[2025-04-05] MEDS ORDERED: NALOXONE HCL 0.4 MG/1 ML VIAL/CARP IV PRN (14:10)
[2025-04-05] MEDS: KETOROLAC TROMETHAMINE 15 MG/ML VIAL IV SCH (14:41)
[2025-04-05] MEDS: SODIUM CHLORIDE 0.9% 1,000 ML IV SCH (14:44)
[2025-04-05] MEDS: DOCUSATE SODIUM 100 MG CAP PO SCH (21:04)
[2025-04-05] MEDS: ASPIRIN 81 MG ECTAB PO SCH (21:04)
[2025-04-05] MEDS: SENNA 8.6 MG TAB PO SCH (21:05)
[2025-04-06 03:09] VITALS: RESP 18
--- NOTE | 2025-04-06 09:02 | Orthopedic Progress Note ---
Date of Service April 06, 2025 Assessment & Plan (1) Status post right knee replacement: Overall he is doing very well. He is not having much pain in the right knee. He will be seen by physical therapy today for ambulation and range of motion exercises. The nursing staff can change his dressing after physical therapy. He is on aspirin for DVT prophylaxis. He can be discharged to home later today. He will follow-up with orthopedics in 2 weeks. Hieu Em was seen and examined at bedside this morning. Overall he is doing very well. He is not having much pain in the right knee. He has been up and ambulating to the bathroom. He has no complaints.. Review of Systems All systems reviewed & are unremarkable except as noted in HPI & below. Physical Exam On physical exam of the right knee, the dressing is clean and dry. His leg is out full extension. He has active dorsiflexion plantarflexion of his right ankle.. Results & Data Results & Data Laboratory Results . Diagnostic Findings Postoperative x-rays of the right knee show the prosthesis to be in anatomic alignment without any evidence of fracture, dislocation, or loosening.. PG Care Time/CCT Total # of Minutes Spent Total Time Spent with Patient: Total time spent is greater than 50% in coordination of care (as documented) at patient's floor/unit and/or counseling patient: Coding Level of Care Code 85183 Post Operative Follow-Up Diagnoses Status post right knee replacement Z96.651
[2025-04-06] MEDS: MULTIVITAMIN TAB PO SCH (09:53)
[2025-04-06 11:37] VITALS: BP 131/76; PULSE 69; TEMP 98.2; O2SAT 97
== END 2025-04-06 12:35 | disposition home or self-care (01) ==
LOC: 3E 08:16 → ASU 08:16